=== PATIENT | male | born 1970 | race Hispanic/Latino ===

== ENCOUNTER 2023-12-07 13:21 | Emergency (ER) | payer OTHER ==
[~2023-12-07] VITALS: Ht 154.9 cm; Wt 72.6 kg
[2023-12-07 15:25] LABS: SARS-CoV-2, RNA, NAAT NEGATIVE SARS CoV-2 (NEGATIVE)
[2023-12-07 15:30] LABS: INFLUENZA TYPE B Negative For Type B (NEGATIVE)
[2023-12-07] MEDS: 0.9%NACL 1000ML 2,000 ML IV ONE (15:41)
[2023-12-07 15:42] VITALS: TEMP 99.9
[2023-12-07] MEDS: ACETAMINOPHEN 325 MG TAB PO ONE (15:42)
[2023-12-07 15:49] LABS: INFLUENZA TYPE A Positive For Type A (NEGATIVE)
[2023-12-07] MEDS: OSELTAMIVIR PHOSPHATE 75 MG CAP PO ONE (16:44)
[2023-12-07] MEDS ORDERED: OSELT15L PO (16:46)
[2023-12-07 17:01] VITALS: BP 119/84; PULSE 75; RESP 20; O2SAT 99
== END 2023-12-07 17:08 | disposition home or self-care (01) ==
LOC: EDH 13:21
DX: J10.1 Influenza due to other identified influenza virus with other respiratory manifestations (principal); Z20.822 Contact with and (suspected) exposure to COVID-19; Z88.5 Allergy status to narcotic agent
CPT/HCPCS: 99283; 96360; 87635; 87804 ×2; J7030